=== PATIENT | male | born 2000 | race Caucasian/White ===

== ENCOUNTER 2018-11-22 10:03 | Day surgery (SDC) | payer BC ==
[~2018-11-22 10:03] MED LIST: BUPIVACAINE HCL/PF 0.5% (5 MG/ML) 30 ML VIAL IJ ONE
[2018-11-22 10:13] VITALS: BMI 24.3
--- NOTE | 2018-11-22 10:36 | PDOC ---
*Physical Exam - Vital Signs Last Vital Signs Temp Pulse Resp BP Pulse Ox 98.2 F 76 18 144/61 97 11/22/18 10:11 11/22/18 10:11 11/22/18 10:11 11/22/18 10:11 11/22/18 10:11 ED Treatment Course - LABORATORY CBC & Chemistry Diagram: 11/22/18 11:09 11/22/18 11:09 Medical Decision Making - Medical Decision Making 11/22/18 16:43 Mr. Urias is a 17 yo M who presents to the ER with a complaint of abdominal pain , nausea, vomiting and diarrhea. Denies fevers, chills, frequency, urgency and hematuria. Abd tender on examination CT - acute appendicitis, no abscess Agree with plan for admission Stephani Cowan consulted Clinical impression: Acute Appendicitis, initial presentation 11/22/18 16:45 *DC/Admit/Observation/Transfer Diagnosis at time of Disposition: Appendicitis - Discharge Dispostion Disposition: HOME Condition at time of disposition: Stable - Referrals - Patient Instructions - Post Discharge Activity
--- NOTE | 2018-11-22 10:50 | PDOC ---
History of Present Illness - General Chief Complaint: Nausea/Vomiting Stated Complaint: VOMITTING Time Seen by Provider: 11/22/18 10:31 History Source: Patient Exam Limitations: No Limitations Past History - Travel Traveled outside of the country in the last 30 days: No Close contact w/someone who was outside of country & ill: No - Past Medical History Allergies/Adverse Reactions: Allergies Allergy/AdvReac Type Severity Reaction Status Date / Time No Known Allergies Allergy Verified 11/22/18 10:11 Home Medications: Ambulatory Orders Acetaminophen [Tylenol .Regular Strength -] 650 mg PO Q6H tablet 11/23/18 Ibuprofen [Motrin -] 600 mg PO Q6H tablet 11/23/18 Anemia: No Asthma: No Cardiac Disorders: No COPD: No GI Disorders: No Thyroid Disease: No - Surgical History Abdominal Surgery: No Appendectomy: No Cardiac Surgery: No - Suicide/Smoking/Psychosocial Hx Smoking Status: No Smoking History: Never smoked Number of Cigarettes Smoked Daily: 0 Information on smoking cessation initiated: No Hx Alcohol Use: No Drug/Substance Use Hx: No Review of Systems - Review of Systems Able to Perform ROS?: Yes Comments:: 11/22/18 10:45 CONSTITUTIONAL: Absent: fever, chills, diaphoresis, generalized weakness, malaise, loss of appetite HEENT: Absent: rhinorrhea, nasal congestion, throat pain, throat swelling, difficulty swallowing, mouth swelling, ear pain, eye pain, visual Changes CARDIOVASCULAR: Absent: chest pain, loss of consciousness, palpitations, irregular heart rate, peripheral edema RESPIRATORY: Absent: cough, shortness of breath, dyspnea with exertion, orthopnea, wheezing, stridor, hemoptysis GASTROINTESTINAL: Present: abdominal pain, abdominal distension, nausea, vomiting, diarrhea Absent : constipation, melena, hematochezia GENITOURINARY: Absent: dysuria, frequency, urgency, hesitancy, hematuria, flank pain, genital pain MUSCULOSKELETAL: Absent: myalgia, arthralgia, joint swelling SKIN: Absent: rash, itching, pallor HEMATOLOGIC/IMMUNOLOGIC: Absent: easy bleeding, easy bruising, lymphadenopathy, frequent infections ENDOCRINE: Absent: unexplained weight gain, unexplained weight loss, heat intolerance, cold intolerance NEUROLOGIC: Absent: headache, focal weakness or paresthesias, dizziness, unsteady gait, seizure, mental status changes, bladder or bowel incontinence PSYCHIATRIC: Absent: anxiety, depression, suicidal or homicidal ideation, hallucinations. Is the patient limited Swiss proficient: No *Physical Exam - Vital Signs Last Vital Signs Temp Pulse Resp BP Pulse Ox 98.2 F 76 18 144/61 97 11/22/18 10:11 11/22/18 10:11 11/22/18 10:11 11/22/18 10:11 11/22/18 10:11 - Physical Exam Comments: 11/22/18 10:46 GENERAL: Well developed, well nourished. Awake and alert. No acute distress. HEENT: Normocephalic, atraumatic. PERRLA, EOMI. No conjunctival pallor. Sclera are non- icteric. Moist mucous membranes. Oropharynx is clear. NECK: Supple. Full ROM. No JVD. Carotid pulses 2+ and symmetric, without bruits. No thyromegaly. No lymphadenopathy. CARDIOVASCULAR: Regular rate and rhythm. No murmurs, rubs, or gallops. Distal pulses are 2+ and symmetric. PULMONARY: No evidence of respiratory distress. Lungs clear to auscultation bilaterally. No wheezing, rales or rhonchi. ABDOMINAL: TTP of the periumbilical region and RLQ pain. Soft. Non-distended. No rebound or guarding. No organomegaly. Normoactive bowel sounds. MUSCULOSKELETAL Normal range of motion at all joints. No bony deformities or tenderness. No CVA tenderness. EXTREMITIES: No cyanosis. No clubbing. No edema. No calf tenderness. SKIN: Warm and dry. Normal capillary refill. No rashes. No jaundice. NEUROLOGICAL: Alert, awake, appropriate. Cranial nerves 2-12 intact. No deficits to light touch and temperature in face, upper extremities and lower extremities. No motor deficits in the in face, upper extremities and lower extremities. Normoreflexic in the upper and lower extremities. Normal speech. Toes are down- going bilaterally. Gait is normal without ataxia. PSYCHIATRIC: Cooperative. Good eye contact. Appropriate mood and affect. ED Treatment Course - LABORATORY CBC & Chemistry Diagram: 11/22/18 11:09 11/22/18 11:09 Medical Decision Making - Medical Decision Making 11/22/18 10:51 The patient is a 17-year-old male with no past medical history who presents to the ER today for lower abdominal pain, nausea and vomiting. Patient states that his symptoms started at 3 AM in the morning and that he was up all night throwing up. He also admits to associated diarrhea. His last oral intake was last night at dinner where he ate a steak. Denies fevers, chills, shortness of breath, chest pain, constipation, frequency, urgency and hematuria. Denies recent travel, recent antibiotic use, or camping. PShx: none A/P: Right lower quadrant pain On exam patient tender to the right lower quadrant and periumbilical region. Negative Rovsing, obturator and psoas signs Diagnosis includes but is not limited to, appendicitis, colitis, gastroenteritis We'll obtain basic labs, urine and CTAP with IV contrast IV fluids, off her meds and Zofran ordered Reevaluate 11/22/18 14:13 Pt with appendicitis on CT Per Stephani Colin 4.5 given for abx, maintence fluids running Will admit pt to Dr. Cowan, satellite Pt and family understand plan and are agreeable to surgery at this time *DC/Admit/Observation/Transfer Diagnosis at time of Disposition: Appendicitis Qualifiers: Appendicitis type: acute appendicitis Acute appendicitis type: with localized peritonitis Appendicitis gangrene presence: unspecified whether gangrene present Appendicitis perforation presence: without perforation Appendicitis abscess presence: without abscess Qualified Code(s): K35.30 - Acute appendicitis with localized peritonitis, without perforation or gangrene - Discharge Dispostion Disposition: HOME Condition at time of disposition: Good Decision to Admit order: Yes - Referrals - Patient Instructions - Post Discharge Activity
[2018-11-22] MEDS ORDERED: ONDANSETRON 4 MG/2 ML VIAL IVPUSH ONE (10:51)
[2018-11-22] MEDS ORDERED: ACETAMINOPHEN 1000 MG/100 ML VIAL (NON FORMULARY) IVPB ONE (10:51)
[2018-11-22] MEDS ORDERED: SODIUM CHLORIDE 1,000 ML IV STA ×2 (10:51→12:02)
[2018-11-22] MEDS ORDERED: ACETAMINOPHEN INJECTION 100 ML IVPB ONE (10:55)
[2018-11-22] MEDS ORDERED: ONDANSETRON 4 MG/2 ML VIAL ONE (10:56)
[2018-11-22 11:20] LABS: EOS % 0.1 % (0-4.5); NEUT % 86.8 % (42.8-82.8)
[2018-11-22 11:22] LABS: PH,URINE 5.5 (5.0-8.0); URINE APPEARANCE CLEAR; URINE BILIRUBIN NEGATIVE (NEGATIVE); URINE COLOR YELLOW; URINE GLUCOSE (UA) NEGATIVE (NEGATIVE); URINE KETONE 2+ (NEGATIVE); URINE LEUK ESTERASE NEGATIVE (NEGATIVE); URINE NITRITE NEGATIVE (NEGATIVE); URINE PROTEIN NEGATIVE (NEGATIVE); URINE UROBILINOGEN 0.2 mg/dL (0.2-1.0)
[2018-11-22] MEDS ORDERED: BUPIVACAINE HCL/PF 0.5% (5 MG/ML) 30 ML VIAL IJ ONE (11:29)
[2018-11-22 11:32] LABS: BASO % 0.1 % (0-2.0); HEMATOCRIT 47.5 % (35.4-49); HEMOGLOBIN 15.8 GM/dL (11.7-16.9); INR 1.08 (0.83-1.09); LYMPH % 6.2 % (8-40); MCH 29.3 pg (25.7-33.7); MCHC 33.2 g/dl (32.0-35.9); MEAN PLT VOLUME 8.9 fl (7.5-11.1); MONO % 6.8 % (3.8-10.2); PLATELET COUNT 199 K/MM3 (134-434); PROTHROMBIN TIME (PATIENT) 12.8 SEC (9.7-13.0); RDW 12.8 % (11.9-15.9); WHITE BLOOD COUNT 13.3 K/mm3 (4.0-10.0)
[2018-11-22 11:46] LABS: ALBUMIN 4.7 g/dl (3.4-5.0); BILIRUBIN,TOTAL 0.6 mg/dL (0.2-1); BLOOD UREA NITROGEN 19.1 mg/dL (7-18); CALCIUM 10.2 mg/dL (8.5-10.1); POTASSIUM 4.1 mmol/L (3.5-5.1); TOT PROT 8.5 g/dl (6.4-8.2)
[2018-11-22] MEDS ORDERED: PIPERACILLIN/TAZOB 4.5 GM 4.5 GM in DEXTROSE 5%-WATER 100 ML IVPB ONE (14:15)
[2018-11-22] MEDS ORDERED: SODIUM CHLORIDE 1,000 ML IV SCH (14:30)
[2018-11-22] MEDS ORDERED: PIPERACILLIN/TAZOB 4.5 GM 4.5 GM/100 ML BAG IVPB ONE (14:50)
--- NOTE | 2018-11-22 15:09 | HP ---
Admitting History and Physical - Primary Care Physician PCP: Rene Howard - Admission Chief Complaint: infraumbilical pain, f/c, n/v, diarrhea History of Present Illness: 17yo healthy M presented with N/V starting 3am this morning associated with infraumbilical abdominal pain, diarrhea for last 2 days, F/C on Tuesday. He has had mild abdominal complaints on/off for the last couple of weeks with body aches without fever or n/v; they thought it was just a virus. Did not have any severe abdominal pain until this morning along with the vomiting, though he did notice the discomfort along his lower abdomen from about 9pm. Has not lost appetite, had steak for dinner last night. In ER, he has wbc 13, and CT shows enlarged, inflamed appendix down into pelvis, consistent with acute appendicitis ; also some RLQ lymphadenopathy was noted. He has received IV fluids and is seen and examined in ER with mother present. His pain is better after medication. Labs were consistent with some dehydration. He is also getting Zosyn. History Source: Patient, Family Member (mother) Limitations to Obtaining History: No Limitations - Past Medical History Additional Past Medical History: none per pt - Past Surgical History Past Surgical History: Yes: None - Smoking History Smoking history: Never smoked Have you smoked in the past 12 months: No - Alcohol/Substance Use Hx Alcohol Use: No History of Substance Use: reports: None - Social History Usual Living Arrangement: Yes: With Parent ADL: Independent Occupation: DJ History of Recent Travel: No (planning trip to [facility] 12/09 for 3 wks) Home Medications - Allergies Allergies/Adverse Reactions: Allergies Allergy/AdvReac Type Severity Reaction Status Date / Time No Known Allergies Allergy Verified 11/22/18 10:11 - Home Medications Home Medications: Ambulatory Orders NK [No Known Home Medication] 01/12/16 Family Disease History - Family Disease History Family Disease History: Other: Mother (had appendix out) Review of Systems - Review of Systems Constitutional: reports: Chills, Fever. denies: Loss of Appetite Eyes: denies: Blurred Vision, Recent Change in Vision HENT: denies: Difficult Swallowing, Throat Pain Neck: denies: Swollen Glands, Tenderness Cardiovascular: denies: Chest Pain, Palpitations Respiratory: denies: Cough, SOB Gastrointestinal: reports: Abdominal Pain (suprapubic/lower with hpi), Diarrhea (with hpi), Nausea (with hpi), Vomiting (with hpi). denies: Constipation Genitourinary: reports: Dysuria (in last couple days, pain with urination). denies: Burning Musculoskeletal: denies: Back Pain, Joint Pain, Muscle Pain Integumentary: denies: Change in Color, Rash Neurological: denies: Dizziness, Headache Psychiatric: denies: Anxiety, Depression Physical Examination Vital Signs: Vital Signs Temperature 97.8 F 11/22/18 14:52 Pulse Rate 64 11/22/18 14:52 Respiratory Rate 20 11/22/18 14:52 Blood Pressure 111/56 L 11/22/18 14:52 O2 Sat by Pulse Oximetry (%) 100 11/22/18 14:52 Constitutional: Yes: Well Nourished, No Distress, Calm Eyes: Yes: Conjunctiva Clear, EOM Intact HENT: Yes: Atraumatic, Normocephalic Neck: Yes: Supple, Trachea Midline Cardiovascular: Yes: Regular Rate and Rhythm Respiratory: Yes: Regular, CTA Bilaterally Gastrointestinal: Yes: Soft, Hypoactive Bowel Sounds, Tenderness (RLQ and down toward pelvis, no brielle/guard, also mild LUQ radiating downwards). No: Distention ...Rectal Exam: Yes: Deferred Renal/: No: CVA Tenderness - Left, CVA Tenderness - Right Musculoskeletal: No: Back Pain (no direct tenderness), Joint Stiffness, Joint Swelling Extremities: No: Cool, Cyanosis Edema: No Peripheral Pulses WNL: Yes Integumentary: No: Jaundice, Rash Neurological: Yes: Alert, Oriented Psychiatric: Yes: Alert, Oriented Labs: CBC, BMP 11/22/18 11:09 11/22/18 11:09 CMP Sodium 137 mmol/L (136-145) 11/22/18 11:09 Potassium 4.1 mmol/L (3.5-5.1) 11/22/18 11:09 Chloride 101 mmol/L (98-107) 11/22/18 11:09 Carbon Dioxide 28 mmol/L (21-32) 11/22/18 11:09 Anion Gap 8 MMOL/L (8-16) 11/22/18 11:09 BUN 19.1 mg/dL (7-18) H 11/22/18 11:09 Creatinine 1.0 mg/dL (0.55-1.3) 11/22/18 11:09 Est GFR (CKD-EPI)AfAm 125.90 11/22/18 11:09 Est GFR (CKD-EPI)NonAf 108.63 11/22/18 11:09 Random Glucose 87 mg/dL (74-106) 11/22/18 11:09 Calcium 10.2 mg/dL (8.5-10.1) H 11/22/18 11:09 Total Bilirubin 0.6 mg/dL (0.2-1) 11/22/18 11:09 AST 19 U/L (15-37) 11/22/18 11:09 ALT 25 U/L (13-61) 11/22/18 11:09 Alkaline Phosphatase 65 U/L (45-117) 11/22/18 11:09 Total Protein 8.5 g/dl (6.4-8.2) H 11/22/18 11:09 Albumin 4.7 g/dl (3.4-5.0) 11/22/18 11:09 INR, PTT INR 1.08 (0.83-1.09) 11/22/18 11:09 Urine Test Results Urine Color Yellow 11/22/18 11:09 Urine Appearance Clear 11/22/18 11:09 Urine pH 5.5 (5.0-8.0) 11/22/18 11:09 Ur Specific [place] 1.023 (1.010-1.035) 11/22/18 11:09 Urine Protein Negative (NEGATIVE) 11/22/18 11:09 Urine Glucose (UA) Negative (NEGATIVE) 11/22/18 11:09 Urine Ketones 2+ (NEGATIVE) H 11/22/18 11:09 Urine Blood Negative (NEGATIVE) 11/22/18 11:09 Urine Nitrite Negative (NEGATIVE) 11/22/18 11:09 Urine Bilirubin Negative (NEGATIVE) 11/22/18 11:09 Ur Leukocyte Esterase Negative (NEGATIVE) 11/22/18 11:09 Imaging - Results Cat Scan: Report Reviewed, Image Reviewed (images reviewed - enlarged/inflamed appendix, extending down into pelvis, no abscess or perforation evident) Problem List - Problems (1) Acute appendicitis with localized peritonitis, without perforation, abscess , or gangrene Assessment/Plan: admit to surgery 23H/satellite NPO until postop, IV fluids IV antibiotics pain meds prn DVT prophylaxis Discussed with patient risks, benefits and alternatives of laparoscopic possible open appendectomy, including but not limited to bleeding, infection, injury to adjacent structures, intestinal leak or injury, intraabdominal abscess , incisional hernia, need for further procedures, ; alternatives include antibiotics, delayed or no surgery - risks of this include failure of nonoperative therapy, perforation, sepsis, recurrence, . Patient desires to proceed with operation - will take to OR for above. Informed consent signed for same. Code(s): K35.30 - ACUTE APPENDICITIS WITH LOC PERITONITIS, W/O PERF OR GANGR (2) Periumbilical abdominal pain Code(s): R10.33 - PERIUMBILICAL PAIN (3) Right lower quadrant abdominal tenderness without rebound tenderness Code(s): R10.813 - RIGHT LOWER QUADRANT ABDOMINAL TENDERNESS (4) Diarrhea Code(s): R19.7 - DIARRHEA, UNSPECIFIED Qualifiers: Diarrhea type: functional diarrhea Qualified Code(s): K59.1 - Functional diarrhea (5) Nausea and vomiting Code(s): R11.2 - NAUSEA WITH VOMITING, UNSPECIFIED Qualifiers: Vomiting type: unspecified Vomiting Intractability: non-intractable Qualified Code(s): R11.2 - Nausea with vomiting, unspecified
[2018-11-22] MEDS ORDERED: LACTATED RINGERS SOLUTION 1,000 ML IV SCH (18:00)
[2018-11-22] MEDS ORDERED: PIPERACILLIN/TAZOB 3.375 GM 3.375 GM in DEXTROSE 5%-WATER - 50 ML IVPB ONE (21:00)
[2018-11-22] MEDS ORDERED: fentaNYL CITRATE 250 MCG/5 ML VIAL ONE (22:26)
[2018-11-22] MEDS ORDERED: ROCURONIUM BROMIDE 50 MG/5 ML SYRINGE ONE ×2 (22:27)
[2018-11-22] MEDS ORDERED: BUPIVACAINE HCL/PF 0.5% (5MG/ML) 10 ML VIAL ONE ×2 (22:27→22:28)
[2018-11-22] MEDS ORDERED: PROPOFOL 20 ML ONE (22:27)
[2018-11-22] MEDS ORDERED: BENZOIN TINCTURE SWABSTICK TP ONE (22:27)
[2018-11-22] MEDS ORDERED: SUCCINYLCHOLINE CHLORIDE 200 MG/10 ML SYRINGE ONE (22:27)
[2018-11-22] MEDS ORDERED: PIPERACILLIN/TAZOBACTAM 3.375 GM VIAL IVPB ONE ×2 (22:46)
[2018-11-22] MEDS ORDERED: NEOSTIGMINE METHYLSULFATE 0.5 MG/ML - 10 ML MDV ONE (23:40)
[2018-11-22] MEDS ORDERED: GLYCOPYRROLATE 0.2 MG/1 ML VIAL ONE ×2 (23:40)
[2018-11-22] MEDS ORDERED: PROMETHAZINE HCL 25 MG/1 ML VIAL IVPUSH PRN (23:57)
[2018-11-22] MEDS ORDERED: ONDANSETRON 4 MG/2 ML VIAL IVPUSH PRN (23:57)
[2018-11-22] MEDS ORDERED: oxyCODONE HCL 5 MG TABLET PO PRN (23:57)
--- NOTE | 2018-11-23 00:04 | OP ---
Operative Note - Note: Operative Date: 11/22/18 Pre-Operative Diagnosis: acute appendicitis Operation: laparoscopic appendectomy Findings: enlarged, inflamed appendix, little yellow fluid in pelvis, suctioned Post-Operative Diagnosis: Same as Pre-op Surgeon: Yousif Cowan Anesthesiologist/SENIOR ACCOUNT MANAGER: Zi Shi Anesthesia: General, Local (20ml 0.5% marcaine) Specimens Removed: appendix to pathology Estimated Blood Loss (mls): 5 Drains & Tubes with Location: Terrell out at case end Drains, Volume Out (mls): 400 (UOP) Fluid Volume Replaced (mls): 1,000 (crystalloid) Operative Report Dictated: Yes
[2018-11-23] MEDS ORDERED: LACTATED RINGERS SOLUTION 1,000 ML IV SCH ×2 (00:07→00:22)
[2018-11-23] MEDS ORDERED: ONDANSETRON 4 MG/2 ML VIAL IVPUSH PRN (00:22)
[2018-11-23] MEDS: ACETAMINOPHEN 325 MG TABLET (FP) PO SCH ×3 (02:03→17:41)
[2018-11-23] MEDS ORDERED: ACETAMINOPHEN 325 MG TABLET (FP) PO SCH (03:00)
[2018-11-23] MEDS: IBUPROFEN 600 MG TABLET (FP) PO SCH ×3 (05:19→17:40)
[2018-11-23] MEDS ORDERED: IBUPROFEN 600 MG TABLET (FP) PO SCH (06:00)
--- NOTE | 2018-11-23 12:57 | PN ---
Progress Note, Physician Chief Complaint: s/p lap appendectomy under general anesthesia History of Present Illness: post op day one - Current Medication List Current Medications: Active Medications Acetaminophen (Tylenol -) 650 mg PO Q6H [facility] Last Admin: 11/23/18 09:16 Dose: 650 mg Lactated Ringer's (Lactated Ringers Solution) 1,000 mls @ 100 mls/hr IV ASDIR [facility] Last Admin: 11/23/18 00:39 Dose: 100 mls/hr Ibuprofen (Motrin -) 600 mg PO Q6H [facility] Last Admin: 11/23/18 11:28 Dose: 600 mg Ondansetron HCl (Zofran Injection) 4 mg IVPUSH Q6H PRN PRN Reason: NAUSEA AND/OR VOMITING - Objective Vital Signs: Vital Signs Temperature 98 F 11/23/18 09:29 Pulse Rate 69 11/23/18 09:29 Respiratory Rate 18 11/23/18 09:29 Blood Pressure 114/50 L 11/23/18 09:29 O2 Sat by Pulse Oximetry (%) 98 11/23/18 09:28 Constitutional: Yes: Well Nourished Cardiovascular: Yes: WNL Respiratory: Yes: WNL Gastrointestinal: Yes: WNL Labs: CBC, BMP 11/22/18 11:09 11/22/18 11:09 INR, PTT INR 1.08 (0.83-1.09) 11/22/18 11:09 Assessment/Plan No adverse effect from anesthetic, pain under control, dept of anesthesiology will sign off care at this time
--- NOTE | 2018-11-23 18:42 | DS ---
Physical Examination Vital Signs: Vital Signs Temperature 98 F 11/23/18 09:29 Pulse Rate 69 11/23/18 09:29 Respiratory Rate 18 11/23/18 17:00 Blood Pressure 114/50 L 11/23/18 09:29 O2 Sat by Pulse Oximetry (%) 98 11/23/18 17:00 Findings/Remarks: POD1 s/p lap appy for acute appendicitis. Seen and examined in room with parents present. Sleeping initially, examined after dinner. Ambulating, voiding, pain managed with alternating tylenol and ibuprofen. No BM yet but passing flatus. Tolerating diet. No specific complaints. Constitutional: Yes: Well Nourished, No Distress, Calm Eyes: Yes: Conjunctiva Clear, EOM Intact HENT: Yes: Atraumatic, Normocephalic Neck: Yes: Supple, Trachea Midline Cardiovascular: Yes: Regular Rate and Rhythm Respiratory: Yes: Regular, CTA Bilaterally Gastrointestinal: Yes: Normal Bowel Sounds, Soft, Tenderness (mild incisional, mild RLQ, no brielle/guard). No: Distention Musculoskeletal: No: Joint Stiffness, Joint Swelling Extremities: No: Cool, Cyanosis Integumentary: Yes: Incision (x3 dressed). No: Jaundice, Rash Wound/Incision: Yes: Steri Strips (under dressings), Dressing Dry and Intact (x3 ). No: Dressing Removed Neurological: Yes: Alert, Oriented. No: Unsteady Gait Labs: no new labs Discharge Summary Reason For Visit: APPENDICITIS Current Active Problems Acute appendicitis with localized peritonitis, without perforation, abscess, or gangrene (Acute) Diarrhea (Acute) Nausea and vomiting (Acute) Periumbilical abdominal pain (Acute) Right lower quadrant abdominal tenderness without rebound tenderness (Acute) Procedures: Principal: laparoscopic appendectomy Hospital Course: 17yo healthy M presented to ER with infraumbilical pain, diarrhea, N/V. WBC was 13, and CT showed acute appendicitis. He was taken for uneventful laparoscopic appendectomy, after which he has tolerated diet, is voiding and ambulating, and pain is controlled with alternating nonnarcotics. Incisions are dressed, clean and dry. He is discharged home with lifting restrictions to f/u in 2 weeks. Time spent on d/c: 35 minutes. Condition: Good - Instructions Diet, Activity, Other Instructions: Postoperative instructions: You had a laparoscopic appendectomy on 11/22/[address] Yousif Cowan of [facility]. Activity: Resume your usual activities gradually, but no heavy exertion or lifting more than 10-15 pounds for 1 month. Remove dressings 48 hours after surgery; sticky tapes underneath will fall off by themselves. You may shower daily starting then, just pat the incision areas dry. No bath or swimming until skin incisions have healed. Eat lightly at first, but advance to your usual diet as tolerated. Pain: For pain, you may use and alternate Tylenol (acetaminophen) 1-2 pills and/ or ibuprofen 200 mg (1-3 pills) every 6 hours each as needed; this means that you can take one OR the other at 3-hour intervals. Do not take more than 4000mg of acetaminophen in a day. Take medications as prescribed or indicated on the labeling. Follow-up: Call Dr. Cowan's office at [phone] to make your postop appointment (Tuesday in approximately 2 weeks after surgery). Clinic is held in the Diagnostic [facility] on the first floor of [facility]. Call the office if you have: * increasing pain not responsive to pain medication * fever of 101F or higher * vomiting * unusual or increasing bleeding or drainage from wounds * increasing redness or swelling at wound sites Also, see your primary medical doctor within 1-2 weeks. Referrals: Rene Howard MD [Primary Care Provider] - Disposition: HOME - Home Medications Comprehensive Discharge Medication List: Ambulatory Orders Acetaminophen [Tylenol .Regular Strength -] 650 mg PO Q6H tablet 11/23/18 Ibuprofen [Motrin -] 600 mg PO Q6H tablet 11/23/18
[2018-11-23 19:00] VITALS: BP 121/52; PULSE 72; TEMP 98.1
--- NOTE | 2018-11-24 18:36 | PATH ---
Surgical Pathology Report Patient Name: LILLIAN BROWN [facility]. Rec. #: [id number] /Age/Gender: 2000 (Age: 17) / M Account: [id number] Location: AMBULATORY SURG Taken: 11/22/2018 Received: 11/23/2018 Reported: 11/24/2018 Physicians: Yousif Cowan M.D. PHYSICIAN EMERGENCY DEPT Specimen(s) Received APPENDIX Clinical History Acute appendicitis Final Diagnosis APPENDIX, APPENDECTOMY: ACUTE APPENDICITIS AND PERIAPPENDICITIS. Electronically Signed Tony Collazo M.D. Gross Description Received in formalin, labeled "appendix," is a 5 cm. in length vermiform appendix with a stapled margin of resection and moderate attached fat. The serosa is erickson lopez and smooth. Sectioning reveals a focally dilated, hemorrhagic lumen. The wall of the appendix averages 0.2 cm. in thickness. Chemical Processing Technician sections are submitted in one cassette. /11/23/2018 saudi11/23/2018
--- NOTE | 2018-12-06 10:55 | OP ---
DATE OF OPERATION: 11/22/2018 PREOPERATIVE DIAGNOSIS: Acute appendicitis. POSTOPERATIVE DIAGNOSIS: Acute appendicitis. OPERATION: Laparoscopic appendectomy. SURGEON: Yousif Cowan MD ANESTHESIA: General endotracheal and local, 20 mL of 0.5% Marcaine. ESTIMATED BLOOD LOSS: 5 mL. FLUIDS: Crystalloid, 1 L. URINE OUTPUT: 400 mL. Terrell was removed at the end of the case. SPECIMEN: Appendix to Pathology. FINDINGS: An enlarged, inflamed appendix with a little yellow fluid in the pelvis, which was suctioned. DISPOSITION: Stable and extubated to PACU. INDICATIONS FOR PROCEDURE: Patient is a 17-year-old healthy male who initially presented with nausea and vomiting, associated with infraumbilical abdominal pain and some diarrhea. In the emergency room, he had a white count of 13,[address] showed enlarged, inflamed appendix extending down into the pelvis, consistent with acute appendicitis. Risks, benefits, and alternatives of laparoscopic possible open appendectomy were discussed with the patient including, but not limited to, bleeding, infection, injury to adjacent structures, intestinal leak or injury, intraabdominal abscess, incisional hernia, need for further procedures, and . Alternatives inclusive of antibiotics and delayed or no surgery were also discussed, including the risks of failure of nonoperative therapy, perforation, sepsis, recurrence, and . The patient desired to proceed with the operation and signed informed consent for the same; he is now brought to the OR for this procedure. OPERATIVE TECHNIQUE: The patient was brought to the operating room and laid supine on the operating table. Sequential compression devices were applied to bilateral lower extremities, and appropriate antibiotics were given preoperatively. After induction and intubation by Anesthesia, a Terrell catheter was placed in the patient's bladder, which was removed at the end of the case, and his lower abdomen was clipped of hair, prepped and draped in sterile fashion. A small infraumbilical incision was made with a scalpel and carried into subcutaneous tissues with electrocautery, until the abdominal wall fascia was identified, scored, and elevated with Mk clamps. The peritoneum was entered bluntly with the tip of a clamp, and a fingertip inserted to ensure entry into the abdominal cavity and the absence of any underlying adhesions. The Jordon trocar was introduced directly into the abdominal cavity and secured in place with the balloon, and the abdomen was insufflated with carbon dioxide. The patient was placed in Trendelenburg position, and the laparoscope inserted to inspect the abdominal cavity. The appendix did appear enlarged and inflamed, and there was a little bit of yellow fluid deep in the pelvis. Two additional 5-mm ports were placed under direct vision in the left lower quadrant and suprapubic locations, and the camera moved to the left lower quadrant port. Two graspers were introduced and used to mobilize the appendix. It was mildly adhesed to surrounding tissues, but it was ultimately freed, and a window created with a [place] dissector in the mesoappendix at the junction of the cecum, so that the appendiceal base could be transected with an Endo NEW stapler. The mesoappendix was also transected with an additional load of the Endo NEW stapler. The fluid was suctioned from the pelvis as well as the operative area, and the appendix was placed in an EndoCatch bag through the umbilical port site, and drawn up into the port there. After ensuring hemostasis at the staple lines and in the operative field, the suprapubic port was removed under direct vision. The Jordon trocar with the EndoCatch bag in it was removed en bloc, and the left lower quadrant port with the camera also withdrawn, and the abdomen was exsufflated of carbon dioxide. The patient was returned to neutral position. The appendix was passed off as a specimen for Pathology. The stay suture at the umbilicus was tied to close the fascia there , and hemostasis was achieved in the port sites with electrocautery where needed. Skin was closed with 4-0 Vicryl subcuticular sutures, including a running at the umbilicus, and benzoin and Steri-Strips were applied to each incision, after local anesthetic was infiltrated into all port sites. Dressings of gauze and Tegaderm were placed over these. The Terrell catheter was then removed from the patient's bladder. Counts were correct at the end of the procedure. The patient was then awakened and extubated by Anesthesia, moved back to a stretcher, and taken to the recovery room in stable condition, having tolerated the procedure well. Yousif Cowan M.D. [id number] MTDD
== END 2018-11-23 19:16 | disposition home or self-care (01) ==
LOC: JER 10:03 → JASUSAT 14:31 → J7W 11-23 00:45 → JASUSAT 11-23 19:16
PROVIDERS: ATTEND Surgery
PROC: 0DTJ4ZZ Resection of Appendix, Percutaneous Endoscopic Approach (ICD-10-PCS; principal; 2018-11-22 17:00)
DX: K35.80 Unspecified acute appendicitis (principal)
CPT/HCPCS: 36415; 74177-TC; 80053; 81003; 85025; 85610; 86850; 86900; 86901; 87086; 88304-TC; 94760; 99284-25; J0131; J7030

== ENCOUNTER 2020-01-13 13:58 | Emergency (ER) | payer BC, OTHER ==
[2020-01-13 14:09] VITALS: BP 111/66; PULSE 68; TEMP 98.3; BMI 26.6
[2020-01-13] MEDS ORDERED: ACETAMINOPHEN 500 MG TABLET (FP) PO ONE (14:24)
[2020-01-13] MEDS ORDERED: ACETAMINOPHEN 500 MG TABLET (FP) ONE (14:26)
--- NOTE | 2020-01-13 15:58 | PDOC ---
Documentation entered by Michaelle Hurst SCRIBE, acting as scribe for Sarah San DO. Sarah San DO: This documentation has been prepared by the mingoibe, Michaelle Hurst SCRIBE, under my direction and personally reviewed by me in its entirety. I confirm that the documentation accurately reflects all work, treatment, procedures, and medical decision making performed by me. History of Present Illness - General Chief Complaint: Injury Stated Complaint: LEFT ANKLE, LEFT FOOT INJURY Time Seen by Provider: 01/13/20 13:59 History Source: Patient Exam Limitations: No Limitations - History of Present Illness Initial Comments: 01/13/20 15:06 The patient is a 19-year-old male with no significant past medical history who presents to the emergency department with a left ankle injury. The patient reports he was running on an uneven track path yesterday, when he twisted his ankle and fell down, denies head injury or LOC. The patient reports he put ice and applied heat to the ankle, without relief. 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 Denies numbness or tingling to the legs. Denies prior injury to the ankle. Denies knee pain. Past History - Medical History Allergies/Adverse Reactions: Allergies Allergy/AdvReac Type Severity Reaction Status Date / Time No Known Allergies Allergy Verified 01/13/20 13:59 Home Medications: Ambulatory Orders NK [No Known Home Medication] 12/08/18 Anemia: No Asthma: No Cardiac Disorders: No COPD: No GI Disorders: No Thyroid Disease: No - Surgical History Abdominal Surgery: No Appendectomy: Yes Cardiac Surgery: No - Psycho-Social/Smoking History Smoking Status: No Smoking History: Never smoked Have you smoked in the past 12 months: No Number of Cigarettes Smoked Daily: 0 Information on smoking cessation initiated: No - Substance Abuse Hx (Audit-C & DAST Scrn) How often the patient has a drink containing alcohol: Never Score: In Men: 4 or > Positive; In Women: 3 or > Positive: 0 Screen Result (Pos requires Nsg. Audit-10AR): Negative In the last yr the pt used illegal drug/Rx for NonMed reason: No Score: Yes response is considered Positive: 0 Screen Result (Positive result requires Nsg. DAST-10): Negative Review of Systems - Review of Systems Able to Perform ROS?: Yes Comments:: 01/13/20 15:06 GENERAL/CONSTITUTIONAL: No fever or chills. No weakness. HEAD, EYES, EARS, NOSE AND THROAT: No change in vision. No ear pain or discharge. No sore throat. CARDIOVASCULAR: No chest pain or shortness of breath. RESPIRATORY: No cough, wheezing, or hemoptysis. GASTROINTESTINAL: No nausea, vomiting, diarrhea or constipation. GENITOURINARY: No dysuria, frequency, or change in urination. MUSCULOSKELETAL: +left ankle injury, No other joint or muscle swelling or pain. No neck or back pain. SKIN: No rash NEUROLOGIC: No headache, vertigo, loss of consciousness, or change in strength/sensation. ENDOCRINE: No increased thirst. No abnormal weight change. HEMATOLOGIC/LYMPHATIC: No anemia, easy bleeding, or history of blood clots. ALLERGIC/IMMUNOLOGIC: No hives or skin allergy. *Physical Exam - Vital Signs Last Vital Signs Temp Pulse Resp BP Pulse Ox 98.3 F 68 18 111/66 100 01/13/20 13:58 01/13/20 13:58 01/13/20 13:58 01/13/20 13:58 01/13/20 13:58 - Physical Exam 01/13/20 15:15 Constitutional: Awake, alert, oriented. No acute distress. Head: Normocephalic. Atraumatic Eyes: PERRL. EOMI. Conjunctivae are not pale. ENT: Mucous membranes are moist and intact. Posterior pharynx without exudate or erythema. Uvula midline. Neck: Supple. Full ROM. No lymphadenopathy. Cardiovascular: Regular rate. Regular rhythm. S1, S2 regular. Pulmonary/Chest: No evidence of respiratory distress. Clear to auscultation bilaterally No wheezing, rales or rhonchi. Abdominal: Soft and non-distended. There is no tenderness. No rebound, guarding or rigidity. Good bowel sounds. Back: No CVA tenderness. No C, T or L spine tenderness. Musculoskeletal: Pelvis stable, no hip tenderness, Full range of motion of the knee. No tenderness to lateral 5th metatarsal. +lateral malleolus tenderness, +tenderness to the 4th metatarsal, +tenderness to the distal fib. Rest of the exam: No edema. No cyanosis. No clubbing. No calf tenderness. Skin: +ecchymosis, bruising and tenderness to the left ankle. Skin is warm and dry. Neurological: Alert and oriented to person, place, and time. Cranial nerves II-XII are grossly intact. Normal speech. Psychiatric: Good eye contact. Normal interaction, affect and behavior. Medical Decision Making - Medical Decision Making 01/13/20 15:53 a/p: 19yo male with no pmhx with L foot and ankle pain -pt with a swollen ecchymotic L lateral malleolus and foot -pain along the 4th metatarsal and lateral malleolus -concern for fx vs high grade sprain -inversion injury while running -will give tylenol -will send for xray -suspect pt will need a splint 01/13/20 15:54 xrays show a talus fx on the L pt splinted and given crutches will need orthopedic follow up stable for dc to home with tylenol or motrin as needed for pain and follow up with orthopedics Discharge - Discharge Information Problems reviewed: Yes Clinical Impression/Diagnosis: Talus fracture Condition: Stable Disposition: HOME - Admission No - Follow up/Referral Referrals: Hernan Washington MD [Staff Physician] - Dean Torres MD [Staff Physician] - Poncho Cole DO [Staff Physician] - - Patient Discharge Instructions Patient Printed Discharge Instructions: DI for Talus Fracture, How to Use Crutches Additional Instructions: Please keep the splint dry. Please keep the foot elevated. Please apply ice to the foot and ankle - 20 min on and 20 min off. You may take tylenol or motrin as needed for pain. Please do not run until cleared by the orthopedist. Please call the orthopedist and schedule a follow up for this week. Please also follow up with your PMD. Please return to the ER with any further concerns or complaints. - Post Discharge Activity Work/Back to School Note: Back to Work
== END 2020-01-13 16:00 | disposition home or self-care (01) ==
LOC: FER 13:58
DX: S92.102A Unspecified fracture of left talus, initial encounter for closed fracture (principal)
CPT/HCPCS: 73610-TC-LT-FY; 73630-TC-LT; 99283-25